=== PATIENT | female | born 1970 | race Caucasian/White ===

== ENCOUNTER 2017-08-29 20:03 | Emergency (ER) | payer MEDICAID ==
[~2017-08-29] VITALS: Ht 160 cm; Wt 91.8 kg
[~2017-08-29 20:03] MED LIST: DOCU-131 PO; IBUP-1222 PO; OXYC-302 PO
[2017-08-29] MEDS ORDERED: ONDANSETRON 2MG/ML, 2ML IVPush ONE ×2 (20:30→22:00)
[2017-08-29] MEDS ORDERED: FAMOTIDINE 20 MG/2 ML IVP ONE ×2 (20:30→22:00)
[2017-08-29] MEDS ORDERED: SODIUM CHLORIDE 0.9% 1,000ML IVBOLUS ONE (20:30)
[2017-08-29] MEDS ORDERED: SODIUM CHLORIDE FLUSH 10ML SYR IVF ONE (20:30)
[2017-08-29] MEDS ORDERED: FAMOTIDINE 20 MG/2 ML ONE (21:00)
[2017-08-29] MEDS ORDERED: ONDANSETRON 2MG/ML, 2ML ONE (21:00)
[2017-08-29 21:03] LABS: ASPARTATE AMINO TRANSFERASE 20 U/L (15-37); BLOOD UREA NITROGEN 18 mg/dL (7-18)
[2017-08-29 21:13] LABS: HEMATOCRIT 44.4 % (34.6-47.8); WHITE BLOOD COUNT 12.1 x10^3/uL (3.4-10)
[2017-08-29] MEDS ORDERED: MAALOX/HYOSCYAMINE/LIDOCAINE 45 ML BTL ONE (21:48)
[2017-08-29] MEDS ORDERED: MAALOX/HYOSCYAMINE/LIDOCAINE 45 ML BTL PO ONE (22:00)
[2017-08-29] MEDS ORDERED: MORPHINE SULFATE 4 MG/ML, 1ML IVPush PRN (22:00)
[2017-08-29] MEDS ORDERED: MORPHINE SULFATE 4 MG/ML, 1ML ONE (22:30)
[2017-08-29 22:34] VITALS: BP 114/76
== END 2017-08-30 00:04 | disposition home or self-care (01) ==
LOC: ED 23:59
DX: K80.70 Calculus of gallbladder and bile duct without cholecystitis without obstruction (principal)
CPT/HCPCS: 36415; 76700; 80053; 81003; 83690; 84703; 85025; 96361; 96374; 96375; 99285; J2405; J7030; S0028

== ENCOUNTER 2017-09-30 10:15 | Day surgery (SDC) | payer MEDICAID ==
[~2017-09-30] VITALS: Ht 160 cm; Wt 90.0 kg
[~2017-09-30 10:15] MED LIST changes: +BUPIVACAINE/PF 0.5% ONE
[2017-09-30] MEDS ORDERED: LIDOCAINE 1%, 2ML ONE (10:41)
[2017-09-30] MEDS ORDERED: LACTATED RINGERS 1,000 ML IV SCH ×2 (10:46→11:11)
[2017-09-30] MEDS ORDERED: IBUP-1222 PO (10:58)
[2017-09-30] MEDS ORDERED: NORE1TAB85 PO (10:58)
[2017-09-30] MEDS ORDERED: ONDA4TAB12 PO (10:58)
[2017-09-30] MEDS ORDERED: TRAM50TA2 PO (10:58)
[2017-09-30] MEDS ORDERED: PLEASE ENTER HEIGHT AND WEIGHT MC SCH (11:00)
[2017-09-30 11:01] VITALS: BP 120/82
[2017-09-30 11:01] LABS: HCG UR SG 1.015 (1.003-1.030)
[2017-09-30] MEDS ORDERED: LIDOCAINE 1%, 2ML SQ PRN (11:30)
[2017-09-30] MEDS ORDERED: MIDAZOLAM 1 MG/ML, 2ML ONE ×2 (12:23→12:43)
[2017-09-30] MEDS ORDERED: FENTANYL PF 250 MCG/5ML ONE (12:38)
[2017-09-30] MEDS ORDERED: PROPOFOL 10 MG/ML, 20ML ONE (12:39)
[2017-09-30] MEDS ORDERED: DEXAMETHASONE 4 MG/ML, 1ML ONE (12:39)
[2017-09-30] MEDS ORDERED: ONDANSETRON 2MG/ML, 2ML ONE (12:39)
[2017-09-30] MEDS ORDERED: ROCURONIUM 10 MG/ML,10ML ONE (12:39)
[2017-09-30] MEDS ORDERED: KETOROLAC 30 MG/1 ML ONE (12:39)
[2017-09-30] MEDS ORDERED: LIDOCAINE 2% 100MG/5ML SYRINGE ONE (12:39)
[2017-09-30] MEDS ORDERED: CEFAZOLIN 1,000 MG ONE (12:43)
[2017-09-30] MEDS ORDERED: INDOCYANINE GREEN 25 MG VIAL ONE (12:50)
[2017-09-30] MEDS ORDERED: BUPIVACAINE/PF-EPI 0.5% 1:200K IM ONE (13:13)
[2017-09-30] MEDS ORDERED: HYDROmorphone 1 MG/ML, 1ML IV PRN (13:30)
[2017-09-30] MEDS ORDERED: ACETAMINOPHEN 325 MG TABLET PO PRN (13:30)
[2017-09-30] MEDS ORDERED: OXYcodone 5 MG/5 ML ORAL.SOL UDC PO PRN (13:30)
[2017-09-30] MEDS ORDERED: hydrALAzine 20 MG/ML, 1ML IV PRN (13:30)
[2017-09-30] MEDS ORDERED: LABETALOL 5MG/ML, 20ML IV PRN (13:30)
[2017-09-30] MEDS ORDERED: PROMETHAZINE 25 MG/ML, 1ML IV PRN (13:30)
[2017-09-30] MEDS ORDERED: MEPERIDINE/PF 25MG/0.5ML IVPush PRN (13:30)
[2017-09-30] MEDS ORDERED: ONDANSETRON 2MG/ML, 2ML IVPush PRN (13:30)
[2017-09-30] MEDS ORDERED: ACETAMINOPHEN 650 MG/20.3 ML UDC ONE (14:02)
[2017-09-30] MEDS ORDERED: OXYcodone 5 MG/5 ML ORAL.SOL UDC ONE (14:03)
[2017-09-30] MEDS ORDERED: FENTANYL PF 100 MCG/2ML ONE (14:03)
[2017-09-30] MEDS: FENTANYL PF 100 MCG/2ML IV PRN ×2 (14:07→14:17)
== END 2017-09-30 17:05 ==
LOC: OUT 10:15
PROVIDERS: ATTEND Surgery
DX: K80.10 Calculus of gallbladder with chronic cholecystitis without obstruction (principal); K42.9 Umbilical hernia without obstruction or gangrene; I10 Essential (primary) hypertension
CPT/HCPCS: 47562; 49585; 81025; 88304; J0690; J1100; J1885; J2250; J2405; J2704; J3010; J3490; J7120; S2900

== ENCOUNTER 2017-12-23 16:11 | Emergency (ER) | payer MEDICAID ==
[~2017-12-23] VITALS: Ht 160 cm; Wt 91.4 kg
[~2017-12-23 16:11] MED LIST changes: -BUPIVACAINE/PF 0.5% ONE; +NORE1TAB85 PO; +ONDA4TAB12 PO; +TRAM50TA2 PO
[2017-12-23 16:13] VITALS: BP 129/84
[2017-12-23] MEDS ORDERED: DIPHENHYDRAMINE 25 MG CAPSULE PO ONE (16:30)
[2017-12-23] MEDS ORDERED: FAMOTIDINE 20 MG TABLET PO ONE (16:30)
[2017-12-23] MEDS ORDERED: FAMOTIDINE 20 MG TABLET ONE (16:41)
[2017-12-23] MEDS ORDERED: DIPHENHYDRAMINE 50 MG CAPSULE ONE (16:41)
== END 2017-12-23 17:02 | disposition home or self-care (01) ==
LOC: ED 16:30
DX: L25.9 Unspecified contact dermatitis, unspecified cause (principal); L20.9 Atopic dermatitis, unspecified
CPT/HCPCS: 99284; J7512; Q0163

== ENCOUNTER 2019-03-25 08:06 | Emergency (ER) | payer MEDICAID ==
[~2019-03-25] VITALS: Ht 160 cm; Wt 87.0 kg
--- NOTE | 2019-03-25 08:15 | NUR ---
patient arrives to the er with complaints of urinary urgency x 1 day and possible requesting a test. had patient collect clean catch urine, no complications. in bed, rails up. urine sent to lab labeled in her presence. urine is dark yellow. patient has been 7 times and has 5 children.
[2019-03-25 08:44] LABS: BASOPHILS # (AUTO) 0.02 x10^3/uL (0-0.1); BASOPHILS % (AUTO) 0 % (0-1); EOSINOPHILS % (AUTO) 0 % (1-7); LYMPHOCYTES # (AUTO) 0.46 x10^3/uL (1-3.4); LYMPHOCYTES % (AUTO) 6 % (22-44); MD NO; MEAN CORPUSCULAR HEMOGLOBIN 31.4 pg (27.0-34.8); MEAN CORPUSCULAR HGB CONC 33.2 g/dL (32.4-35.8); MEAN CORPUSCULAR VOLUME 94.5 fL (80-100); MEAN PLATELET VOLUME 7.7 fL (7.4-10.4); MONOCYTES # (AUTO) 0.22 x10^3/uL (0.2-0.8); MONOCYTES % (AUTO) 3 % (2-9); NEUTROPHILS % (AUTO) 91 % (42-75); PLATELET COUNT 297 x10^3/uL (130-400); RED BLOOD COUNT 4.57 x10^6/uL (3.82-5.3); RED CELL DISTRIBUTION WIDTH 14.3 % (9.6-15.2)
[2019-03-25 08:44] LABS: CULTURE INDICATED? YES; MICROSCOPIC INDICATED
[2019-03-25 08:56] LABS: ALBUMIN 3.8 g/dL (3.4-5.0); ANION GAP 5 mmol/L (5-15); CALCIUM 8.8 mg/dL (8.5-10.1); CHLORIDE 107 mmol/L (98-107)
[2019-03-25 09:01] LABS: ALANINE AMINOTRANSFERASE 46 U/L (12-78); ALKALINE PHOSPHATASE 79 U/L (45-117); BILIRUBIN,TOTAL 0.6 mg/dL (0.2-1.0); CREATININE 0.93 mg/dL (0.55-1.02)
[2019-03-25 09:25] VITALS: BP_DIAS 70
--- NOTE | 2019-03-25 09:25 | NUR ---
awaiting lab work.
[2019-03-25 09:43] VITALS: BP_SYST 123
--- NOTE | 2019-03-25 10:01 | NUR ---
patient discharge teaching reviewed. shows understanding.
== END 2019-03-25 10:01 | disposition home or self-care (01) ==
LOC: ED 09:48
DX: N30.00 Acute cystitis without hematuria (principal)
CPT/HCPCS: 36415; 80053; 81001; 83690; 84703; 85025; 87077; 87086; 87186; 99283

== ENCOUNTER 2020-11-08 10:50 | Emergency (ER) | payer MEDICAID ==
[~2020-11-08] VITALS: Ht 160 cm; Wt 77.2 kg
[~2020-11-08 10:50] MED LIST changes: +ONDA-89 PO; -ONDA4TAB12 PO; -OXYC-302 PO; +OXYC1TAB14 PO
[2020-11-08] MEDS ORDERED: ONDANSETRON 2MG/ML, 2ML IVPush ONE (11:00)
[2020-11-08] MEDS ORDERED: MAALOX/HYOSCYAMINE/LIDOCAINE 45 ML BTL PO ONE (11:00)
[2020-11-08] MEDS ORDERED: SODIUM CHLORIDE FLUSH 10ML SYR IVF ONE (11:00)
[2020-11-08] MEDS ORDERED: FAMOTIDINE 20 MG/2 ML IVPush ONE (11:00)
[2020-11-08] MEDS ORDERED: SODIUM CHLORIDE 0.9% 1,000ML IVBOLUS ONE (11:00)
--- NOTE | 2020-11-08 11:02 | NUR ---
pt presents to ED via ambulance with complaint of epigatric pain radiating to back onset approx 1 hr ago after eating breakfast. pt states pain is worsened with deep breath and palpation, rates at 8/10, dull in nature. all monitors in place. EKG in progress. pt instructed to provide urine sample when able, supplies at bedside. call light in reach. pt instructed in use.
[2020-11-08] MEDS ORDERED: IBUP200T64 PO (11:05)
--- NOTE | 2020-11-08 11:11 | NUR ---
Pt up to bathroom to provide urine sample, gait steady.
[2020-11-08] MEDS ORDERED: ONDANSETRON 2MG/ML, 2ML ONE (11:36)
[2020-11-08] MEDS ORDERED: FAMOTIDINE 20 MG/2 ML ONE (11:36)
[2020-11-08] MEDS ORDERED: MAALOX/HYOSCYAMINE/LIDOCAINE 45 ML BTL ONE (11:36)
--- NOTE | 2020-11-08 11:47 | NUR ---
pt reattached to all monitors, PIV placed by EDTA, meds admin per emar, pt tolerated well. unable to draw back blood for labs, lab notified and at bedside for draw. pt awaiting US and dispo.
[2020-11-08 11:52] LABS: MICROSCOPIC INDICATED
[2020-11-08 11:58] LABS: BASOPHILS % (AUTO) 0 % (0-1); EOSINOPHILS % (AUTO) 0 % (1-7); LYMPHOCYTES % (AUTO) 11 % (22-44); MEAN CORPUSCULAR HGB CONC 33.6 g/dL (32.4-35.8); MEAN PLATELET VOLUME 7.9 fL (7.4-10.4); MONOCYTES % (AUTO) 3 % (2-9); NEUTROPHILS % (AUTO) 86 % (42-75); PLATELET COUNT 263 x10^3/uL (130-400); RED BLOOD COUNT 4.24 x10^6/uL (3.82-5.3); RED CELL DISTRIBUTION WIDTH 14.2 % (9.6-15.2)
[2020-11-08 12:09] LABS: ALANINE AMINOTRANSFERASE 30 U/L (12-78); ALBUMIN 3.6 g/dL (3.4-5.0); ANION GAP 6 mmol/L (5-15); CALCIUM 8.1 mg/dL (8.5-10.1); CHLORIDE 107 mmol/L (98-107); MD NO
[2020-11-08 12:14] LABS: ALKALINE PHOSPHATASE 73 U/L (45-117); BILIRUBIN,TOTAL 0.3 mg/dL (0.2-1.0); TOTAL PROTEIN 7.1 g/dL (6.4-8.2); TROPONIN I < 0.015 ng/mL (0.000-0.045)
--- NOTE | 2020-11-08 13:05 | NUR ---
pt resting on gurney, a&o, resps even and unlabored. nsr on night monitor with no ectopy. pt reports abd pain is marginally improved. pt taken to CT at this time.
--- NOTE | 2020-11-08 13:59 | NUR ---
report given at bedside to JYOTSNA Mujica who is assuming care. pt a&o, resps even and unlabored, nsr on quality assurance monitor final with no ectopy. pt to be discharged.
[2020-11-08 14:07] VITALS: BP 123/81
== END 2020-11-08 14:10 | disposition home or self-care (01) ==
LOC: ED 11:35
DX: K29.00 Acute gastritis without bleeding (principal); R11.2 Nausea with vomiting, unspecified; R10.13 Epigastric pain; R19.7 Diarrhea, unspecified; E66.9 Obesity, unspecified; Z68.30 Body mass index [BMI] 30.0-30.9, adult; Z90.49 Acquired absence of other specified parts of digestive tract
CPT/HCPCS: 36415; 74176; 76700; 80053; 81001; 83690; 84484; 84703; 85025; 87086; 93005; 96361; 96374; 96375; 99285; J2405; J7030